=== PATIENT | female | born 1995 | race Hispanic/Latino ===

== ENCOUNTER 2023-02-20 05:34 | Emergency (ER) | payer BC, SELFPAY ==
[2023-02-20 06:42] LABS: #Eosinphils 0.1 thou/uL (0.0-0.7); #Monocytes 0.6 thou/uL (0.11-0.59); #Neutrophils 2.8 thou/uL (1.40-6.50); %Basophils 0.5 % (0.0-1.0); %Eosinophils 0.9 % (0.0-10.0); %Monocytes 8.8 % (0.0-10.0); %Neutrophils 42.2 % (42.0-75.0); Hemoglobin 13.3 g/dL (12.0-16.0); Mean Corpuscular Hemoglobin 28.4 pg (27.0-31.0); Mean Corpuscular Volume 88.7 fl (78.0-98.0); Mean Platelet Volume 9.3 fL (7.4-10.4); Platelet Count 384 10x3/uL (130-400); RBC Distribution Width 13.2 % (11.5-14.5); Red Blood Cell (RBC) Count 4.69 mill/uL (4.20-5.40); White Blood Cell (WBC) Count 6.6 10x3/uL (4.8-10.8)
[2023-02-20 07:12] LABS: ALT (SGPT) 24 U/L (8-55); AST (SGOT) 18 U/L (5-34); Alkaline Phosphatase 64 U/L (40-110); Anion Gap 12 mmol/L (10-20); BUN (Urea Nitrogen) 11 mg/dL (7.0-18.7); Bilirubin, Total 0.2 mg/dL (0.2-1.2); Calc. Creatinine Clearance 0 mL/min (70-130); Calcium 8.7 mg/dL (7.8-10.44); Carbon Dioxide 26 mmol/L (22-29); Chloride 104 mmol/L (98-107); Estimated GFR 101; Globulin 3.6 g/dL (2.4-3.5); Glucose 101 mg/dL (70-105); Lipase 24 U/L (8-78); Protein, Total 7.6 g/dL (6.0-8.3); Sodium 138 mmol/L (136-145)
[2023-02-20 08:12] LABS: Bacteria/HPF None Seen HPF (None Seen); Bilirubin Negative (Negative); Blood, Urine Negative (Negative); CAUTI Indications for Culture Pelvic or flank pain; Clarity Clear (Clear); Glucose, Urine (Dipstick) Normal (Negative); Ketone, Urine Negative (Negative); Leukocyte 75 Leu/uL (Negative); Nitrite Negative (Negative); Protein, Urine (Dipstick) 10 mg/dL (Neg-Trace); RBC/HPF 0-3 HPF (0-3); Specific Gravity, Urine 1.021 (1.002-1.036); Urobilinogen Normal mg/dL (Less than 2)
[2023-02-20 08:13] LABS: Pregnancy Test - Urine (BHCG) Negative (Negative); Pregu Control Background? CLEAR/WHITE (CLR/WHITE); Pregu Control Bar Appear? YES (CONTROL BAR); Specific Gravity 1.021 (1.002-1.036); Urine Culture Reflex No No
== END 2023-02-20 08:28 | disposition home or self-care (01) ==
LOC: ERS 05:34
DX: K80.50 Calculus of bile duct without cholangitis or cholecystitis without obstruction (principal); F17.210 Nicotine dependence, cigarettes, uncomplicated
CPT/HCPCS: 36415; 76705; 80053; 81001; 81025; 83690; 85025

== ENCOUNTER 2023-03-10 06:05 | Emergency (ER) | payer SELFPAY | END 2023-03-10 07:12 | disposition home or self-care (01) | LOC: ERS 06:05 | DX: S39.012A Strain of muscle, fascia and tendon of lower back, initial encounter (principal); F17.210 Nicotine dependence, cigarettes, uncomplicated; W18.30XA Fall on same level, unspecified, initial encounter | CPT/HCPCS: 72100 ==